=== PATIENT | female | born 1970 | race Caucasian/White ===

== ENCOUNTER 2023-11-15 17:16 | Emergency (ER) | payer BC ==
[~2023-11-15] VITALS: Ht 175.3 cm; Wt 229.0 kg
[2023-11-15 17:58] VITALS: TEMP 97.5; O2SAT 98
[2023-11-15] MEDS ORDERED: LEVO50CA4 PO (18:04)
[2023-11-15 19:31] LABS: BASOPHILS # (AUTO) 0.1 X10'3 (0-0.2); BASOPHILS % (AUTO) 1.8 % (0-1); EOSINOPHILS # (AUTO) 0.1 X10'3 (0-0.9); EOSINOPHILS % (AUTO) 1.9 % (0-6); HEMATOCRIT 39.6 % (35.0-45.0); HEMOGLOBIN 13.3 g/dl (12.0-16.0); LYMPHOCYTES # (AUTO) 2.1 X10'3 (1.1-4.8); LYMPHOCYTES % (AUTO) 29.4 % (21-51); MEAN CORPUSCULAR HEMOGLOBIN 28.7 PG (27.0-31.0); MEAN CORPUSCULAR HGB CONC 33.6 g/dL (33.0-36.5); MEAN CORPUSCULAR VOLUME 85.5 FL (78-98); MEAN PLATELET VOLUME 8.7 FL (7.4-10.4); MONOCYTES # (AUTO) 0.3 X10'3 (0-0.9); MONOCYTES % (AUTO) 4.5 % (2-12); NEUTROPHILS # (AUTO) 4.4 X10'3 (1.8-7.7); NEUTROPHILS % (AUTO) 62.4 % (42-75); PLATELET COUNT 243 X10'3 (140-440); RED BLOOD COUNT 4.64 X10'6 (4.20-5.60); RED CELL DISTRIBUTION WIDTH 13.2 % (11.5-14.5)
[2023-11-15 19:36] LABS: PROTHROMBIN TIME 10.9 SECONDS (9.0-12.0)
[2023-11-15 19:48] LABS: ANION GAP 7 (8-16); BLOOD UREA NITROGEN 9 MG/DL (7-18); BUN/CREATININE RATIO 11.5 (10.0-20.0); CALCIUM 8.9 MG/DL (8.5-10.1); CHLORIDE 103 MMOL/L (99-107); CREATININE 0.78 MG/DL (0.40-0.90); GLUCOSE 106 MG/DL (70-104); POTASSIUM 3.7 MMOL/L (3.5-5.1); SODIUM 139 MMOL/L (135-145); THYROID STIMULATING HORMONE 1.85 ulU/ml (0.34-4.50); TOTAL CARBON DIOXIDE 29.2 MMOL/L (24-32); eCRCL 85 ML/MIN; eGFR 77 ML/MIN
[2023-11-15] MEDS ORDERED: LISI20TA28 PO (20:33)
[2023-11-15 20:58] VITALS: BP 160/59; PULSE 69; RESP 16
== END 2023-11-15 20:59 | disposition home or self-care (01) ==
LOC: ER 17:17
DX: I10 Essential (primary) hypertension (principal); R00.2 Palpitations; Z76.0 Encounter for issue of repeat prescription; K21.9 Gastro-esophageal reflux disease without esophagitis; E78.00 Pure hypercholesterolemia, unspecified; E07.9 Disorder of thyroid, unspecified; E03.9 Hypothyroidism, unspecified
CPT/HCPCS: 36415; 71045; 80048; 84443; 85025; 85610; 93005; 99285

== ENCOUNTER 2025-02-20 09:22 | Emergency (ER) | payer BC ==
[~2025-02-20] VITALS: Ht 172.7 cm; Wt 107.0 kg
[~2025-02-20 09:22] MED LIST: LEVO50CA5 PO
[2025-02-20 09:27] VITALS: BP 140/81; PULSE 82; RESP 16; TEMP 99.5; O2SAT 100
[2025-02-20] MEDS ORDERED: DOXY-460 PO (09:50)
--- NOTE | 2025-02-20 09:51 | Physician Documentation ---
History of Present Illness ~ Chief Complaint: Rash Stated Complaint: INFECTION ON FACE Time Seen by MD: 09:40 Source: patient Mode of Arrival: POV Exam Limitations: no limitations HPI 55-year-old female here with painful red rash on her nose that extends into her cheeks bilaterally. Rash started four days ago. Patient has been treating it with [id number] medication for acne which has not helped. He tried this leave what she thought was a pimple on the tip of her nose a few days ago and states up for this and seemed to get worse. No itching. No shortness of breath, difficulty swallowing, fever, chills, pain with extraocular movements. Medication Reconciliation Allergies: Coded Allergies: Sulfa (Sulfonamide Antibiotics) (Verified Allergy, Unknown, 11/15/23) lithium (Verified Allergy, Unknown, 11/15/23) Scheduled Doxycycline Monohydrate (Doxycycline Monohydrate), 1 CAP PO Q12H Levothyroxine Sodium (Levothyroxine), 1 CAP PO DAILY Past Medical History Past Medical History: High Cholesterol, GERD, Hypothyroidism Review of Systems All Other Systems at this time: Reviewed and Negative Physical Exam Vital Signs: Temperature: 99.5, Source: Oral, Heart Rate: 82, Respiratory Rate: 16, BP: 140/81, Pulse Oximetry: 100, Weight: 107.000 Oxygen Flow Rate: 0 Physical Exam General Appearance: Alert, WD/WN. NAD. HEENT: NCAT, PERRL, EOMI. Erythematous skin on nose that extends up between the highs and into both the left and right upper maxillary area. No induration. Area is warm to palpation with mild tenderness with palpation of nose. Nasal mucosa normal, no pustules. Neck: Supple, trachea midline. No cervical lymphadenopathy. Cardiovascular: RRR. No m/r/g. Lungs: CTAB. Breathing unlabored Extremities: Normal inspection. No edema. Skin: Warm/dry, normal color Neurological: Alert and oriented x4, normal gait. Psychiatric: Affect congruent with mood. Progress Results/Orders Results/Orders Vital Signs 02/20/25 09:27 Temp 99.5 Pulse 82 Resp 16 B/P (MAP) 140/81 Pulse Ox 100 O2 Flow Rate 0 Medical Decision Making Differential Dx:Considerations: Include: Abscess, AIDS/HIV, Anthrax (cutaneous), Atopic dermatitis, Candidiasis, Contact dermatitis, Drug reaction, Erythema multiforme, Erysipelas, Gangrene, Herpes zoster, Herpes simplex, Hidradenitis suppurativa, Impetigo, Intertrigo, Lymes disease, Molluscum contagiosum, Osteomyelitis, Pediculosis, Pityriasis rosea, Psoriaisis, RMSF, Rosacea, Scabies, Scarlet fever, Tinea, Urticaria, Varicella, Viral exanthema, Other Additional Comment This is not consistent with shingles this is bilateral, there is no area of fluctuance or definable abscess. Patient is nontoxic normal vitals. Considering the lack of itching-and how it is painful and starting at the nose with what patient thought was a pustule is not consistent with allergic etiology but rather infectious. Departure Time of Disposition: 09:51 Disposition: HOME / SELF CARE / HOMELESS Impression: Primary Impression: Cellulitis Qualified Codes: L03.211 - Cellulitis of face Condition: Stable Discharge Instructions: Cellulitis, Adult Additional Instructions: LIKE WE DISCUSSED IF YOU HAVE TEMPERATURE OF OVER 100.4, YOUR TONGUE FEELS BIG, YOU HAVE DIFFICULTY SWALLOWING, INCREASING REDNESS OF YOUR FACE OR ANY OTHER CONCERNING SYMPTOMS RETURN TO ER IMMEDIATELY Referrals: NO PRIMARY CARE PROVIDER (PCP) Prescriptions Doxycycline Monohydrate (Doxycycline Monohydrate) 100 Mg Capsule 1 CAP PO Q12H for 10 Days, #20 CAP Prov: ESTEPHANIA HARRELL 02/20/25 Education Educated: Patient Educated regarding: diagnosis, treatment, need for follow up Signature Scribe Signature: x Attestation: ESTEPHANIA Rutherford Feb 20, 2025 09:51
[2025-02-21] MEDS ORDERED: LISI20TA28 PO (08:37)
[2025-02-21] MEDS ORDERED: ATOR20TA66 PO (08:38)
[2025-02-21] MEDS ORDERED: LANS30CA56 PO (08:38)
== END 2025-02-20 10:00 | disposition home or self-care (01) ==
LOC: ER 09:23
DX: L03.211 Cellulitis of face (principal); E03.9 Hypothyroidism, unspecified; E78.00 Pure hypercholesterolemia, unspecified; K21.9 Gastro-esophageal reflux disease without esophagitis; Z88.2 Allergy status to sulfonamides
CPT/HCPCS: 99283